=== PATIENT | female | born 1960 | race African-American/Black ===

== ENCOUNTER 2023-01-19 09:47 | Emergency (ER) | payer OTHER ==
[~2023-01-19] VITALS: Ht 157.5 cm; Wt 79.4 kg
[~2023-01-19 09:47] MED LIST: TRAM50TA3
[2023-01-19 10:08] VITALS: BP 155/95; PULSE 104; RESP 16; TEMP 100.9; O2SAT 98
[2023-01-19] MEDS ORDERED: AMOX-494 MT (10:43)
[2023-01-19] MEDS ORDERED: ACET-2708 MT (10:43)
[2023-01-19] MEDS ORDERED: ACETAMINOPHEN 325MG TABLET PO ONE (10:45)
== END 2023-01-19 12:39 | disposition home or self-care (01) ==
LOC: ER 09:47
DX: J32.9 Chronic sinusitis, unspecified (principal); G43.909 Migraine, unspecified, not intractable, without status migrainosus; Z86.73 Personal history of transient ischemic attack (TIA), and cerebral infarction without residual deficits; Z88.2 Allergy status to sulfonamides
CPT/HCPCS: 99282